=== PATIENT | male | born 2000 | race Two or more races ===

== ENCOUNTER 2022-11-13 17:10 | Emergency (ER) | payer OTHER ==
[~2022-11-13] VITALS: Ht 175.3 cm; Wt 68.0 kg
[2022-11-13] MEDS ORDERED: DOLOGEN CAPLET1 EACH PO (21:04)
== END 2022-11-13 22:01 | disposition home or self-care (01) ==
LOC: ER 17:10
DX: B34.9 Viral infection, unspecified (principal); Z20.822 Contact with and (suspected) exposure to COVID-19